=== PATIENT | male | born 1970 | race Caucasian/White ===

== ENCOUNTER 2020-01-17 00:37 | Outpatient (CLI) | payer BC, SELFPAY ==
[2020-01-17 18:04] LABS: SARS-CoV-2 RNA PCR Negative
== END 2020-01-17 00:38 | disposition home or self-care (01) ==
LOC: ANHCOVIDDT 00:37
PROVIDERS: PCP Family Medicine; Visit Provider Internal Medicine Gastroenterology
DX: Z01.812 Encounter for preprocedural laboratory examination (principal); Z20.828 Contact with and (suspected) exposure to other viral communicable diseases
CPT/HCPCS: 87635; C9803; U0003

== ENCOUNTER 2020-01-20 00:33 | Day surgery (SDC) | payer BC, SELFPAY ==
[2020-01-12 12:41] VITALS: BMI 31.6
[2020-01-20 09:05] VITALS: BP 146/100; PULSE 92; RESP 16; TEMP 36.4; O2SAT 98; BMI 31.8
[2020-01-20] MEDS: LACTATED RINGERS 1,000 ML 150 ML IV CONT (09:12)
--- NOTE | 2020-01-20 09:42 | WPDANESEPPF ---
Anes - Initial Pre Proc Eval Procedure: Operation Date: 01/20/20 10:15 Proposed Procedures p Screening Colonoscopy - Gregory Ortiz MD Date/Time: 01/20/20 09:42 Surgeon: Gregory Ortiz MD Pre Op Diagnosis: Neoplasm Screening Patient Data Age: 49 Gender: M Height: 5 ft 10 in Weight: 100.9 kg Last Vital Signs Temp 97.6 F 01/20/20 09:05 Pulse 92 01/20/20 09:05 Resp 16 01/20/20 09:05 BP 146/100 H 01/20/20 09:05 Pulse Ox 98 01/20/20 09:05 Allergies Allergy/AdvReac Type Severity Reaction Status Date / Time No Known Allergies Allergy Verified 01/20/20 09:04 Home Medications Medication Instructions Recorded Confirmed Type fluoxetine 40 mg capsule 40 mg PO DAILY 12/03/19 01/12/20 History loratadine 10 mg tablet 10 mg PO DAILY 12/03/19 01/12/20 History peg 3350-electrolytes 236 240 ml PO Q10M #4000 ml 12/09/19 Rx gram-22.74 gram-6.74 gram-5.86 gram solution Patient hx anesthesia problems: none Family hx anesthesia problems: none PMFSH Past Medical History Medical History (Updated 01/20/20 @ 09:42 by Av Navarro MD) Fatty liver Gastro-esophageal reflux disease without esophagitis Mixed hyperlipidemia Obesity (BMI 30.0-34.9) Prediabetes Sleep apnea, unspecified Surgical History Surgical History History of inguinal hernia repair, bilateral Family History Family History Father Hypertension Family history of elevated blood lipids Family history of cardiovascular disease Cerebrovascular accident Other Family history of mental disorder Social History Social History (Updated 12/03/19 @ 11:01 by Mery Delarosa CMA) Smoking packs per day: 1.5 Smoking cigarettes per day: 30.0 Years smoked: 10 Smoking pack-years: 15.00 Smoking status: Former smoker Tobacco type: cigarettes Alcohol intake: current Substance use: never Substance use type: does not use Spiritual care concerns: No Anes - Eval Final PreProcedure Day of Procedure 01/20/20 09:42 Patient weight: obese Heart: regular rate and rhythm Lungs: clear to auscultation Airway: Mallampati scale class II Neurological: alert and oriented Last oral intake: >/= 8 hours ASA classification: III Emergent: no Anesthetic plan: proceed Anesthesia type and monitoring: general GIVS and standard monitoring Informed Consent: The patient's anesthetic plan and its attendant risks and benefits were discussed with the patient/family/POA. Questions were solicited and answers provided to the satisfaction of the patient/family/POA.
--- NOTE | 2020-01-20 09:54 | PM.HPGS ---
History of Present Illness History of Present Illness Consent: Risks, benefits, and alternatives have been discussed and questions answered. Patient agrees to proceed with procedure. Chief complaint: Neoplasm Screening Narrative: Vishnu Nelson is a 49 year old male here for his first screening colonoscopy Review of Systems Constitutional: Constitutional: Denies headache(s) and Denies weakness Eyes: Eyes: Denies blurry vision ENT: Reports Normal hearing present, Denies headache(s) and Denies neck pain Cardiovascular: Cardiovascular: Denies chest pain and Denies dyspnea Respiratory: Respiratory: Denies dyspnea Gastrointestinal: Gastrointestinal: Reports no additional gastrointestinal complaints Genitourinary: Genitourinary: Denies dysuria Musculoskeletal: Musculoskeletal: Denies neck pain Integumentary/Breasts: Skin/Breast: Denies dry skin Neurologic: Reports Normal hearing present, Denies headache(s) and Denies weakness Psychiatric: Psychiatric: Denies anxiety Endocrine: Endocrine: Denies change in body appearance Hematologic/Lymphatic: Hematologic/Lymphatic: Denies easy bleeding Allergic/Immunologic: Allergic/Immunologic: Denies urticaria PMF Past Medical History Medical History (Updated 01/20/20 @ 09:54 by Gregory Ortiz MD) Colon cancer screening Fatty liver Gastro-esophageal reflux disease without esophagitis Mixed hyperlipidemia Obesity (BMI 30.0-34.9) Prediabetes Sleep apnea, unspecified Surgical History Surgical History History of inguinal hernia repair, bilateral Family History Family History Father Hypertension Family history of elevated blood lipids Family history of cardiovascular disease Cerebrovascular accident Other Family history of mental disorder Social History Social History (Updated 12/03/19 @ 11:01 by Mery Delarosa CMA) Smoking packs per day: 1.5 Smoking cigarettes per day: 30.0 Years smoked: 10 Smoking pack-years: 15.00 Smoking status: Former smoker Tobacco type: cigarettes Alcohol intake: current Substance use: never Substance use type: does not use Spiritual care concerns: No Meds Home Medications and Allergies Home Medications Medication Instructions Recorded Confirmed Type fluoxetine 40 mg capsule 40 mg PO DAILY 12/03/19 01/12/20 History loratadine 10 mg tablet 10 mg PO DAILY 12/03/19 01/12/20 History peg 3350-electrolytes 236 240 ml PO Q10M #4000 ml 12/09/19 Rx gram-22.74 gram-6.74 gram-5.86 gram solution Allergies Allergy/AdvReac Type Severity Reaction Status Date / Time No Known Allergies Allergy Verified 01/20/20 09:04 Vital Signs Vital Signs - 24 hr 01/20/20 09:05 Temperature 97.6 F Pulse Rate 92 Respiratory Rate 16 Blood Pressure 146/100 H Pulse Oximetry 98 Exam Const: General: comfortable and no acute distress HENMT: General nose exam: Normal nares present Eyes: General: appearance normal, both eyes and all related structures Neck: Neck: no JVD Resp: Auscultation: clear to auscultation bilaterally Cardio: Rate: regular rate Rhythm: regular rhythm GI: Inspection: non-distended GI Palp: Yes Soft to palpation Skin: General skin exam: normal color Neuro: General: gait normal Speech: normal speech Extrem: General: normal to inspection Psych: Mental Status: mental status grossly normal Assessment and Plan Assessment and plan (1) Colon cancer screening: Code(s): Z12.11 - Encounter for screening for malignant neoplasm of colon Status: Acute Assessment and Plan: will proceed with colonoscopy
[2020-01-20 10:15] VITALS: BP 136/101; PULSE 79; RESP 18; O2SAT 94
[2020-01-20 10:25] VITALS: BP 133/91; PULSE 79; RESP 18; O2SAT 98
[2020-01-20 10:35] VITALS: BP 143/94; PULSE 80; RESP 17; O2SAT 98
== END 2020-01-20 10:45 | disposition home or self-care (01) ==
PROVIDERS: PCP Family Medicine; Visit Provider Internal Medicine Gastroenterology
PROC: 0DJD8ZZ Inspection of Lower Intestinal Tract, Via Natural or Artificial Opening Endoscopic (ICD-10-PCS; CPT 45378; principal; 2020-01-20 10:15)
DX: Z12.11 Encounter for screening for malignant neoplasm of colon (principal); K57.30 Diverticulosis of large intestine without perforation or abscess without bleeding; R73.03 Prediabetes; K21.9 Gastro-esophageal reflux disease without esophagitis; K76.0 Fatty (change of) liver, not elsewhere classified; E78.2 Mixed hyperlipidemia; G47.30 Sleep apnea, unspecified; Z87.891 Personal history of nicotine dependence; E66.9 Obesity, unspecified; Z68.31 Body mass index [BMI] 31.0-31.9, adult
CPT/HCPCS: 45378; J2704; J7120

== ENCOUNTER → 2022-02-09 12:09 | Outpatient (CLI) | payer BC, SELFPAY ==
--- NOTE | ~2022-02-09 | XR_ITS ---
XR shoulder RT min 2V DATE: 02/09/2022 12:29 INDICATION: Right shoulder pain. No injury. TECHNIQUE: 3 views COMPARISON: None FINDINGS: There is mild degenerative change of the right acromion clavicular joint. There is moderate periarticular spurring at the right clavicular joint consistent with moderately pro minent right glenohumeral osteoarthritis. No fracture or dislocation, periosteal reaction or bone destruction. IMPRESSION: Moderately prominent right glenohumeral osteophyte is Mild degenerative change at right acromion clavicular joint Reviewed, dictated and finalized at location [facility]. OR TECHNICAL PROJECT MANAGER
== END ==
PROVIDERS: PCP Physician Assistant; Visit Provider Physician Assistant
DX: M25.511 Pain in right shoulder (principal); M25.711 Osteophyte, right shoulder
CPT/HCPCS: 73030

== ENCOUNTER 2023-10-30 08:16 | Outpatient (CLI) | payer BC, SELFPAY ==
[2023-10-30 14:31] LABS: Cholesterol 175 mg/dL (0-200); HDL Direct 40 mg/dL; Triglycerides 153 mg/dL (<150)
[2023-10-30 14:35] LABS: Alanine Aminotransferase 52 U/L (6-50); Albumin Level 4.5 g/dL (3.5-5.1); Alkaline Phosphatase 60 U/L (38-126); Anion Gap 12 mmol/L (4-12); Aspartate Amino Transferase 49 U/L (17-59); Bilirubin,Total 0.4 mg/dL (0.2-1.3); Blood Urea Nitrogen 17 mg/dL (9-20); Calcium 8.6 mg/dL (8.4-10.2); Carbon Dioxide 26 mmol/L (22-30); Chloride 100 mmol/L (98-107); Estimated Glomerular Filt Rate > 60; Glucose 97 mg/dL (65-110); Potassium 4.6 mmol/L (3.4-5.0); Sodium 138 mmol/L (137-145)
[2023-10-30 14:42] LABS: LDL Cholesterol Direct 101 mg/dL
[2023-10-30 15:05] LABS: Prostate Specific Antigen 0.5 ng/mL (< OR = 4.0)
[2023-10-30 16:26] LABS: Hemoglobin A1C 6.3 % (<5.7)
[2023-11-03 19:08] LABS: Testosterone Total 234 ng/dL (250-1100)
== END 2023-10-30 08:17 | disposition home or self-care (01) ==
LOC: ANHGOSHLAB 08:17
PROVIDERS: PCP Family Medicine; Visit Provider Family Medicine
DX: E78.2 Mixed hyperlipidemia (principal); K76.0 Fatty (change of) liver, not elsewhere classified; R73.03 Prediabetes
CPT/HCPCS: 36415; 80053; 80061; 83036; 84153; 84403; G0103

== ENCOUNTER 2024-02-26 08:11 | Outpatient (CLI) | payer BC, SELFPAY ==
[2024-02-26 12:56] LABS: Hematocrit 44.9 % (42.0-52.0); Hemoglobin 14.7 g/dL (14.0-18.0); Mean Corpuscular HGB Conc 32.7 g/dl (32-36); Mean Corpuscular Hemoglobin 28.4 pg (26-34); Mean Corpuscular Volume 86.8 fl (80-100); Mean Platelet Volume 9.6 fl (7.4-10.4); Platelet Count Result 332 k/mm3 (150-375); Red Blood Count 5.17 M/mm3 (4.6-6.20); Red Cell Distribution Width 13.6 % (11.5-14.5); White Blood Count 7.1 K/mm3 (4.5-10.0)
[2024-02-26 13:20] LABS: Alanine Aminotransferase 52 U/L (6-50); Albumin Level 4.4 g/dL (3.5-5.1); Alkaline Phosphatase 59 U/L (38-126); Anion Gap 8 mmol/L (4-12); Aspartate Amino Transferase 43 U/L (17-59); Bilirubin,Total 0.3 mg/dL (0.2-1.3); Blood Urea Nitrogen 13 mg/dL (9-20); Calcium 8.6 mg/dL (8.4-10.2); Carbon Dioxide 26 mmol/L (22-30); Chloride 103 mmol/L (98-107); Estimated Glomerular Filt Rate > 60; Glucose 92 mg/dL (65-110); Potassium 4.1 mmol/L (3.4-5.0); Sodium 137 mmol/L (137-145)
[2024-02-26 14:32] LABS: Hemoglobin A1C 6.1 % (<5.7)
== END 2024-02-26 08:12 | disposition home or self-care (01) ==
LOC: ANHGOSHLAB 08:12
PROVIDERS: PCP Family Medicine; Visit Provider Family Medicine
DX: E29.1 Testicular hypofunction (principal); R73.03 Prediabetes
CPT/HCPCS: 36415; 80053; 83036; 85027

== ENCOUNTER 2024-07-10 10:30 | Outpatient (CLI) | payer BC, SELFPAY ==
--- NOTE | ~2024-07-10 | MR_ITS ---
MRI of the cervical spine Clinical History: Neck pain Technique: Axial T2-weighted and gradient images, and sagittal T1-weighted, T2-weighted, and STIR juan ges were acquired. Findings: There is no fracture or subluxation of the cervical spine. Vertebral bodies maintain normal height and alignment. No bone marrow signal abnormality seen. At C2-C3, there is no disc bulge or herniation. No spinal canal stenosis, cord compression, or neural foraminal narrowing. There is minimal facet arthropathy. At C3-C4, there is disc osteophyte complex with mild flattening of the ventral cord. There is minimal bilateral neural foraminal narrowing. At C4-C5, there is minimal central disc bulge. There is probable minimal bilateral neural foraminal n arrowing. No canal stenosis or cord compression. At C5-C6, there is no significant disc bulge or herniation. There is minimal bilateral neural foramin al narrowing. No canal stenosis or cord compression. At C6-C7, there is left neural foraminal narrowing. No canal stenosis, cord compression, or right bunny ral foraminal narrowing. No abnormal signal seen in the spinal cord. Paravertebral soft tissues are unremarkable. Impression: Moderate degenerative spondylosis at C3-C4, as above. Mild degenerative changes otherwise, as above. Reviewed, dictated and finalized at [facility]. Impression: Moderate degenerative spondylosis at C3-C4, as above. Mild degenerative changes otherwise, as above.
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
== END 2024-07-10 10:31 | disposition home or self-care (01) ==
LOC: GOSHIMG 10:30
PROVIDERS: PCP Family Medicine; Visit Provider Family Medicine
DX: M47.812 Spondylosis without myelopathy or radiculopathy, cervical region (principal); M79.603 Pain in arm, unspecified; V89.2XXA Person injured in unspecified motor-vehicle accident, traffic, initial encounter
CPT/HCPCS: 72050; 72141

== ENCOUNTER 2024-08-26 08:39 | Outpatient (CLI) | payer BC, SELFPAY ==
--- OUTSIDE RECORDS SUMMARY | 2024-08-26 08:44 | XMS_ITS | Data Portability ---
Author Organization [place] [facility] Address [address] [place] [address] Care Team Providers Care Acid Tender Name Role Phone RICCARDO TREVIZO Referring Provider Assessment No assessment recorded. Plan of Treatment Reminders Order Date Submit Date Provider Last Modified By Organization Details Last Modified Time Details Appointments None record ed. Lab None record ed. Referral None record ed. Procedures None record ed. Surgeries None record ed. Imaging None record ed. Medication Orders None record ed. Patient TargetsNo targets recorded. Patient InstructionsNo instructions recorded. Reason for Referral None Reported. Results Created Date Observation Date Name Description Value Unit Range Abnormal Flag Note LastModifiedBy Organization Detail LastModifiedTime 09/01/19 22 09/01/2021 HEMOG LOBIN A1C hemoglobin A1C 6.1 % 4.8-5. 6 above high normal Predi abete s: 5.7 - 6.4 Diabe kalyan: >6.4 Glyce carmel contr ol for adult s with diabe kalyan: <7.0 Not Available [facility] ([facility]) [address] [place], [address], 09/01/2021 05:48:47 09/01/19 22 09/01/2021 LIPID PROFI LE cholesterol, total 162 mg/dL 100-19 9 Not Available [facility] ([facility]) [address] [place], [address], 09/01/2021 05:48:47 09/01/19 22 09/01/2021 LIPID PROFI LE triglyceride s 152 mg/dL 0-149 above high normal Not Available [facility] ([facility]) [address] [place], [address], 09/01/2021 05:48:47 09/01/19 22 09/01/2021 LIPID PROFI LE HDL cholesterol 40 mg/dL >39 Not Available [facility] ([facility] [address] [place], [address], 09/01/2021 05:48:47 09/01/19 22 09/01/2021 LIPID PROFI LE VLDL cholesterol sukumar 27 mg/dL 5-40 Not Available [facility] ([facility] [address] [place], [address], 09/01/2021 05:48:47 09/01/19 22 09/01/2021 LIPID PROFI LE LDL chol calc ([facility]) 95 mg/dL 0-99 Not Available [facility] [address] [place], [address], 09/01/2021 05:48:47 09/01/19 22 09/01/2021 LIPID PROFI LE comment: nps Not Available [facility] ([facility]) [address] [place], [address], 09/01/2021 05:48:47 09/01/19 22 09/01/2021 COMP. METAB OLIC PANEL (14) glucose 99 mg/dL 65-99 Not Available [facility] ([facility]) [address] [place], [address], 09/01/2021 05:48:46 09/01/19 22 09/01/2021 COMP. METAB OLIC PANEL (14) BUN 15 mg/dL 6-24 Not Available [facility] ([facility]) [address] [place], [address], 09/01/2021 05:48:46 09/01/19 22 09/01/2021 COMP. METAB OLIC PANEL (14) creatinine 0.88 mg/dL 0.76-1 .27 Not Available [facility] ([facility]) [address] [facility] [place], [address], 09/01/2021 05:48:46 09/01/19 22 09/01/2021 COMP. METAB OLIC PANEL (14) eGFR 103 mL/mi n/1.7 3 >59 Not Available [facility] ([facility]) [address], [place], [address], 09/01/2021 05:48:46 09/01/19 22 09/01/2021 COMP. METAB OLIC PANEL (14) BUN/creatini ne ratio 17 9-20 Not Available [facility] ([facility]) [address] [facility] [place], [address], 09/01/2021 05:48:46 09/01/19 22 09/01/2021 COMP. METAB OLIC PANEL (14) sodium 139 mmol/ L 134-14 4 Not Available [facility] ([facility]) [address] [facility] [place] [place], [address], 09/01/2021 05:48:46 09/01/19 22 09/01/2021 COMP. METAB OLIC PANEL (14) potassium 4.7 mmol/ L 3.5-5. 2 Not Available [facility] ([facility]) [address] [facility] [place] [place], [address], 09/01/2021 05:48:46 09/01/19 22 09/01/2021 COMP. METAB OLIC PANEL (14) chloride 101 mmol/ L 96-106 Not Available [facility] ([facility]) [address] [facility] [place] [place], [address], 09/01/2021 05:48:46 09/01/19 22 09/01/2021 COMP. METAB OLIC PANEL (14) carbon dioxide, total 23 mmol/ L 20-29 Not Available [facility] ([facility]) [address] [facility] [place] [place], [address], 09/01/2021 05:48:46 09/01/19 22 09/01/2021 COMP. METAB OLIC PANEL (14) calcium 9.0 mg/dL 8.7-10 .2 Not Available [facility] ([facility]) [address] [place], [address], 09/01/2021 05:48:46 09/01/19 22 09/01/2021 COMP. METAB OLIC PANEL (14) protein, total 6.9 g/dL 6.0-8. 5 Not Available [facility] ([facility]) [address] [place], [address], 09/01/2021 05:48:46 09/01/19 22 09/01/2021 COMP. METAB OLIC PANEL (14) albumin 4.6 g/dL 3.8-4. 9 Not Available [facility] ([facility]) [address] [place], [address], 09/01/2021 05:48:46 09/01/19 22 09/01/2021 COMP. METAB OLIC PANEL (14) globulin, total 2.3 g/dL 1.5-4. 5 Not Available [facility] ([facility]) [address] [place], [address], 09/01/2021 05:48:46 09/01/19 22 09/01/2021 COMP. METAB OLIC PANEL (14) A/G ratio 2.0 1.2-2. 2 Not Available [facility] ([facility]) [address] [place], [address], 09/01/2021 05:48:46 09/01/19 22 09/01/2021 COMP. METAB OLIC PANEL (14) bilirubin, total 0.2 mg/dL 0.0-1. 2 Not Available [facility] ([facility]) [address] [place], [address], 09/01/2021 05:48:46 09/01/19 22 09/01/2021 COMP. METAB OLIC PANEL (14) alkaline phosphatase 65 IU/L 44-121 Not Available [facility] ([facility]) [address] [place], [address], 09/01/2021 05:48:46 09/01/19 22 09/01/2021 COMP. METAB OLIC PANEL (14) AST (SGOT) 23 IU/L 0-40 Not Available [facility] ([facility]) [address] [place], [address], 09/01/2021 05:48:46 09/01/19 22 09/01/2021 COMP. METAB OLIC PANEL (14) ALT (SGPT) 42 IU/L 0-44 Not Available [facility] ([facility]) [address] [place], [address], 09/01/2021 05:48:46 07/07/19 22 07/05/2021 XR, chest , 1 view No observ ation record ed. [id number] Not Available 07/11/2022 20:36:15 07/07/19 22 07/05/2021 elect rocar diogr am No observ ation record ed. [id number] Not Available 07/11/2022 20:36:15 07/07/19 22 07/05/2021 elect rocar diogr am No observ ation record ed. [id number] Not Available 07/11/2022 20:36:15 08/04/19 22 08/02/2021 stres s echoc ardio gram No observ ation record ed. [id number] Matias Oswald MD [address] [place] [address], [address], 07/11/2022 20:36:15 Result Notes None recorded. Problems Name Problem SNOMED Code Status Onset Date Resolution Date Notes Provider Name and Address Organization Details Recorded Time Chest pain 40503129 Active 2021 Not Available [facility] 3 04:41:46 Hypertensive disorder 15116152 Active 2021 Not Available [facility] 3 04:41:47 Obesity 238700767 Active 2021 Not Available [facility] 3 04:41:47 Seasonal allergy 698299835 Active 2021 Not Available [facility] 3 04:41:47 Anxiety 57676897 Active 2021 Not Available [facility] 3 04:41:47 Hyperlipidemi a 50930221 Active 2021 Not Available [facility] 3 04:41:47 Essential hypertension 86373953 Active 2021 Not Available [facility] 3 04:41:47 Sleep apnea 96752461 Active 2021 Not Available [facility] 3 04:41:47 Problem Notes None recorded. Procedures Surgical History Date Name Laterality Status Provider Name and Address Organization Details Recorded Time Hernia Repair completed Not Available [facility] 04/02/2022 04:41:12 Imaging Results None recorded. Procedure Notes None recorded. Medical Equipment None Reported. Medications Name Sig Start Date Stop Date Status Note LastModified by Organization Details LastModified Time losartan 50 mg tablet TAKE 1 TABLET BY MOUTH DAILY active Not Available Not Available No t Available fluoxetine 40 mg capsule TAKE 1 CAPSULE BY MOUTH DAILY active Not Available Not Available No t Available amoxicillin 500 mg capsule TAKE 1 CAPSULE BY MOUTH EVERY 8 HOURS 07/20 completed Not Available Not Available Not Available ondansetron HCl 4 mg tablet TAKE 1 TABLET BY MOUTH EVERY 4 TO 6 HOURS NEEDED 07/20 completed Not Available Not Available Not Available lisinopril 10 mg tablet TAKE 1 TABLET BY MOUTH DAILY 07/27 completed Not Available Not Available Not Available Zyrtec 10 mg capsule Take 1 capsule every day by oral route. 2021 active Not Available Not Available Not Avai lable Vitals Date Recorded Body mass index (BMI) Body height Oxygen saturation Oxygen saturation in Arterial blood by Pulse oximetry Heart rate Respiratory rate Body temperature Body weight Systolic blood pressure Diastolic blood pressure Provider Name and Address Organization Details Last Updated DateTime 2 35.6 kg/m2 177.8 cm 97 % 97 % 71 /min 18 /min 98.2 [degF] 696294. 27 g 142 mm[Hg] 82 mm[Hg] Not Available [facility] 3 04:41:32 Date Recorded Body mass index (BMI) Body height Oxygen saturation Oxygen saturation in Arterial blood by Pulse oximetry Heart rate Respiratory rate Body temperature Body weight Systolic blood pressure Diastolic blood pressure Provider Name and Address Organization Details Last Updated DateTime 2 34.3 kg/m2 177.8 cm 96 % 96 % 72 /min 18 /min 98 [degF] 652527. 86 g 148 mm[Hg] 93 mm[Hg] Not Available [facility] 3 04:41:32 Social History Question Answer Notes LastModified by [employer] Details LastModified Time Tobacco Smoking Status Never Smoker Not Available [facility] 04/02/2022 04:40:46 Do You Have An Advance Directive? No [id number] Information not available 04/02/2022 What Is Your Level Of Caffeine Consumption? None [id number] Information not available 04/02/2022 In The 14 Days Before Symptom Onset, Have You Had Close Contact With A Laboratory-con firmed COVID-19 While That Case Was Ill? No [id number] Information not available 04/02/2022 What Type Of Diet Are You Following? REGULAR [id number] Information not available 04/02/2022 Do You Have A Medical Power Of Leadership Development Instructor? No [id number] Information not available 04/02/2022 Have You Recently Traveled Abroad? No [id number] Information not available 04/02/2022 Do You Have Any Dietary Restrictions? No [id number] Information not available 04/02/2022 Sex: Unknown Functional Status Question Answer Note LastModified by [employer] Details LastModified Time Do you use any illicit or recreational drugs? No [id number] Information not available 04/02/2022 Do you or have you ever used any other forms of tobacco or nicotine? No Former Vap [id number] Information not available 04/02/2022 What is your level of alcohol consumption? None [id number] Information not available 04/02/2022 What is your exercise level? Occasional [id number] Information not available 04/02/2022 Mental Status None recorded. Family History Relationship Description Onset Age of this Age Resolved Age Notes LastModified by Organization Details LastModified Time Mother Coronary artery bypass graft [id number] Not available 04/02/2022 04:41:14 Paternal Grandfather Heart disease [id number] Not available 04/02/2022 04:41:14 Paternal Grandmother Cerebrovascu lar accident [id number] Not available 04/02/2022 04:41:14 Medical History No medical history recorded. Past Encounters Encounter ID Performer Location Encounter Start Date Encounter Closed Date Diagnosis/Indication Diagnosis SNOMED-CT Code Diagnosis ICD10 Code Diagnosis Note [id number] Matias Oswald MD [facility] [place] [address] [address] 07/27/2021 00:00:00 07/27/2021 12:04:02 [id number] Matias Oswald MD [facility] [place] [address] [address] 09/01/2021 00:00:00 09/01/2021 12:01:29 Health Concerns Section Related Observation LastModified by Organization Detai ls LastModified Time None Recorded Concern Status LastModified by Organization Details LastModified Time None Recorded Advance Directives Directive N: Payers Insurance Date Sequence Insurance Name Policy Number Policy Torres Covered Member ID Torres Member ID Guarantor Name 08/25/2022 1 [id number] [id number] Augustina Nelson [id number] Vishnu Nelson Notes Date Note Type Note Provider Name and Address Organization Details Recorded Time 07/27/2021 text/html Angina/Chest PainReported bypatient.Location :left jaw; substernal on the left Severity:moderate; pain level 4-5/10 Duration:lasts minutes Context:exertional ;occurs with emotional stress Alleviating Factors:relieved with rest Aggravating Factors:worse with activity Associated Symptoms:chest discomfort;shortne ss of breath;exertional dyspnea Not Available [facility] 07/27/2021 12:04:02
--- OUTSIDE RECORDS SUMMARY | 2024-08-26 08:44 | XMS_ITS | Clinical Summary ---
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 Gender Identity Not on file Sexual Orientation Not on file Plan of Treatment Health Maintenance Due Date Last Done Comments Hepatitis C Virus (HCV) Screening 1970 TdaP Immunization 1969 Hepatitis B Immunization (1 of 3 - 19+ 3-dose series) 1988 Colonoscopy 2014 Colorectal Cancer Screening 2014 Cologuard 07/26/2019 Immunochemical Fecal Occult Blood 07/26/2019 Pneumococcal Immunization (5 0+ years) (1 of 1 - PCV) 07/26/2019 Zoster Immunization (1 of 2) 07/26/2019 Influenza Immunization (#1) 2023 SARS-COV-2 Immunization ( - season) 2023 Respiratory Syncytial Virus (RSV) Immunization (Adult) (1 - 1-dose 75+ series) 2044 Meningococcal Immunization (ACWY) Aged Out No longer eligible based on patient's age to complete this topic Pneumococcal Immunization Combined Aged Out No longer eligible based on patient's age to complete this topic Rotavirus Immunization Aged Out No lo nger eligible based on patient's age to complete this topic
[2024-08-26 11:13] LABS: Basophils Absolute Auto 0.1 K/mm3 (0.0-0.1); Basophils Percent Auto 0.8 % (0.2-1.2); Eosinophils Absolute Auto 0.1 K/mm3 (0-0.3); Eosinophils Percent Auto 1.9 % (0-4.4); Hematocrit 44.9 % (42.0-52.0); Hemoglobin 14.4 g/dL (14.0-18.0); Immature Granulocyte Absolute 0.02 K/mm3 (0.00-0.031); Immature Granulocyte Percent A 0.3 % (0-0.5); Lymphocytes Absolute Auto 1.86 K/mm3 (0.9-3.2); Lymphocytes Percent Auto 29.7 % (18.3-44.2); Mean Corpuscular HGB Conc 32.1 g/dl (32-36); Mean Corpuscular Hemoglobin 27.6 pg (26-34); Mean Corpuscular Volume 86.2 fl (80-100); Mean Platelet Volume 9.5 fl (7.4-10.4); Monocytes Absolute Auto 0.6 K/mm3 (0.1-0.6); Monocytes Percent Auto 8.8 % (2.6-8.5); Neutrophils Absolute Auto 3.7 K/mm3 (1.3-6.7); Neutrophils Percent Auto 58.5 % (45.5-73.1); Platelet Count Result 350 k/mm3 (150-375); Red Blood Count 5.21 M/mm3 (4.6-6.20); Red Cell Distribution Width 13.3 % (11.5-14.5); White Blood Count 6.3 K/mm3 (4.5-10.0)
[2024-08-26 12:46] LABS: Alanine Aminotransferase 52 U/L (6-50); Albumin Level 4.5 g/dL (3.5-5.1); Alkaline Phosphatase 57 U/L (38-126); Anion Gap 12 mmol/L (4-12); Aspartate Amino Transferase 58 U/L (17-59); Bilirubin,Total 0.6 mg/dL (0.2-1.3); Blood Urea Nitrogen 15 mg/dL (9-20); Carbon Dioxide 23 mmol/L (22-30); Chloride 102 mmol/L (98-107); Estimated Glomerular Filt Rate > 60; Glucose 103 mg/dL (65-110); Sodium 137 mmol/L (137-145); Total Protein 7.4 g/dL (6.3-8.2)
[2024-08-26 13:20] LABS: Creatinine Urine 251.1 mg/dL
[2024-08-26 13:23] LABS: MALB Creatinine Ratio 8.6 mg/g (0-30); Microalbumin Urine Random 21.6 mg/L (0-16.7)
[2024-08-26 17:08] LABS: Hemoglobin A1C 5.9 % (<5.7)
[2024-08-30 18:39] LABS: Testosterone Total 208 ng/dL (250-1100)
== END 2024-08-26 08:40 | disposition home or self-care (01) ==
LOC: ANHGOSHLAB 08:40
PROVIDERS: PCP Family Medicine; Visit Provider Family Medicine
DX: E29.1 Testicular hypofunction (principal); E11.9 Type 2 diabetes mellitus without complications
CPT/HCPCS: 36415; 80053; 82043; 83036; 84403; 85025

== ENCOUNTER 2024-08-28 08:45 | Outpatient (RCR) | payer BC, SELFPAY ==
--- NOTE | 2024-07-23 10:01 | OPREHPOC ---
Outpatient Therapy Plan of Care This is a Multidisciplinary Plan of Care that may contain components documented by all disciplines (PT, OT, and ST.) PT Problem 1 PT Problem #1 Knowledge Deficit PT Goal 1 Goal / Goal Update 1. Pt to be IND with issued HEP Target Visit 8 PT Problem 2 PT Problem #2 Pain PT Goal 1 Goal / Goal Update 1. Pt to report shoulder pain no greater than 3/10 in the last week. 2. Pt to report no more than 25% disability on the quick DASH. Target Visit 8 PT Problem 3 PT Problem #3 Impaired Range of Motion PT Goal 1 Goal / Goal Update 1. Pt to improve elder cervical rotation to 60 deg elder. 2. Pt to improve L shoulder abduction to 140 deg PT Problem 4 PT Problem #4 Impaired Strength PT Goal 1 Goal / Goal Update 1. Pt to improve L shoulder strength to grossly 4+ /5 2. Pt to be able to lift 5lb overhead without an increase in symptoms. Target Visit 8
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
== END 2024-10-21 23:59 | disposition home or self-care (01) ==
LOC: ANHGOSHPT 08:45
PROVIDERS: PCP Family Medicine; Visit Provider Family Medicine
DX: M79.605 Pain in left leg (principal); M54.12 Radiculopathy, cervical region; V89.2XXA Person injured in unspecified motor-vehicle accident, traffic, initial encounter
CPT/HCPCS: 97014; 97110; 97112; 97140; 97161; G0283

== ENCOUNTER 2025-02-26 08:26 | Outpatient (CLI) | payer BC, SELFPAY ==
--- OUTSIDE RECORDS SUMMARY | 2025-02-26 08:40 | XMS_ITS | Clinical Summary ---
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 Gender Identity Not on file Sexual Orientation Not on file Plan of Treatment Health Maintenance Due Date Last Done Comments Hepatitis C Virus (HCV) Screening 1970 TdaP Immunization 1969 Hepatitis B Immunization (1 of 3 - 19+ 3-dose series) 1988 Cologuard 2014 Colonoscopy 2014 Colorectal Cancer Screening 2014 Immunochemical Fecal Occult Blood 2014 Pneumococcal Immunization (5 0+ years) (1 of 1 - PCV) 07/26/2019 Zoster Immunization (1 of 2) 07/26/2019 Influenza Immunization (#1) 2024 SARS-COV-2 Immunization ( - season) 2024 Respiratory Syncytial Virus (RSV) Immunization (Adult) (1 - 1-dose 75+ series) 2044 Human Papillomavirus (HPV) Immunization Aged Out No longer eligible b ased on patient's age to complete this topic Meningococcal Immunization (ACWY) Aged Out No longer eligible based on patient's age to complete this topic Rotavirus Immunization Aged Out No lo nger eligible based on patient's age to complete this topic
[2025-02-26 14:40] LABS: Alanine Aminotransferase 50 U/L (6-50); Albumin Level 4.4 g/dL (3.5-5.1); Alkaline Phosphatase 57 U/L (38-126); Anion Gap 7 mmol/L (4-12); Aspartate Amino Transferase 51 U/L (17-59); Bilirubin,Total 0.5 mg/dL (0.2-1.3); Blood Urea Nitrogen 12 mg/dL (9-20); Calcium 8.7 mg/dL (8.4-10.2); Carbon Dioxide 26 mmol/L (22-30); Chloride 103 mmol/L (98-107); Cholesterol 174 mg/dL (0-200); Estimated Glomerular Filt Rate > 60; Glucose 83 mg/dL (65-110); HDL Direct 36 mg/dL; Potassium 4.0 mmol/L (3.4-5.0); Sodium 136 mmol/L (137-145); Total Protein 7.3 g/dL (6.3-8.2); Triglycerides 171 mg/dL (<150)
[2025-02-26 15:15] LABS: Prostate Specific Antigen 0.5 ng/mL (< OR = 4.0)
[2025-02-26 16:09] LABS: Hemoglobin A1C 6.0 % (<5.7)
== END 2025-02-26 08:27 | disposition home or self-care (01) ==
LOC: ANHGOSHLAB 08:27
PROVIDERS: PCP Family Medicine; Visit Provider Family Medicine
DX: E78.2 Mixed hyperlipidemia (principal); Z12.5 Encounter for screening for malignant neoplasm of prostate
CPT/HCPCS: 36415; 80053; 80061; 83036; 84153; G0103